=== PATIENT | female | born 1945 | race Two or more races ===

== ENCOUNTER → 2019-03-14 | Outpatient (CLI) | payer BC ==
[~2019-03-14] MED LIST: DIATRIZOATE MEGL/DIATRIZOA SOD 30 ML BTL PO ONE; IOPAMIDOL 370 MG/ML 200 ML INFUS..BTL INJ ONE; SODIUM CHLORIDE 0.9% 50ML 50 ML ONE
[2019-03-14 09:33] LABS: BLOOD UREA NITROGEN 12 mg/dL (7-26); BUN/CREATININE RATIO 17 (6-25); CREATININE, SERUM 0.71 mg/dL (0.57-1.11); EST GLOMERULAR FILTRATION RATE > 60 ML/MIN (60-)
--- NOTE | 2019-03-14 10:42 | Diagnostic Imaging Report ---
ADDENDUM #1 ADDENDUM: Upon further review, the pancreatic uncinate process hypodensity is suspicious for a mass. This measures up to 2.2 cm on coronal series 601, image 72. Therefore pancreatic protocol MRI is recommended for further evaluation. Signed by: Dr. Gm Jalloh MD on 03/14/2019 1:25 PM ORIGINAL REPORT EXAM: CT Abdomen with contrast INDICATION: Abdominal pain, elevated CA 19-9, query pancreatic mass. COMPARISON: None. TECHNIQUE: Abdomen was scanned utilizing a multidetector helical scanner from the lung base to the iliac crests after administration of IV contrast. Coronal and sagittal reformations were obtained. Pancreatic mass protocol was performed. Arterial, portal venous, and delayed images were obtained. IV CONTRAST: 100 cc of Isovue 370 ORAL CONTRAST: Water COMPLICATIONS: None RADIATION DOSE: Total DLP: 1134.7 mGy*cm Dose modulation, iterative reconstruction, and/or weight based adjustment of the mA/kV was utilized to reduce the radiation dose to as low as reasonably achievable. FINDINGS: LINES and TUBES: None. LOWER THORAX: Unremarkable HEPATOBILIARY: Diffuse mild hepatic steatosis. No evidence of focal lesion. No biliary ductal dilation. GALLBLADDER: No radio-opaque stones or sludge. No wall thickening. SPLEEN: No splenomegaly. PANCREAS: No evidence of discrete mass. There is mild hypoenhancement of the uncinate process, as seen on coronal series 601, image 72. No ductal dilatation. ADRENALS: No adrenal nodules KIDNEYS: Kidneys enhance symmetrically. No evidence of hydronephrosis, solid mass, or stone. GI TRACT: No evidence of wall thickening or distension. LYMPH NODES: No lymphadenopathy. VESSELS: Scattered atherosclerotic calcifications of the abdominal aorta. PERITONEUM / RETROPERITONEUM: No free air or fluid. BONES AND SOFT TISSUES: Unremarkable. CONCLUSION: Mild nonspecific hypoenhancement of the uncinate process without discrete pancreatic mass. In the setting of elevated cancer markers, pancreatic protocol MRI or a follow-up pancreatic protocol CT in 3 months may be considered. Diffuse mild hepatic steatosis. Signed by: Dr. Gm Jalloh MD on 03/14/2019 12:41 PM
== END ==
LOC: CT 07:55
PROVIDERS: ATTEND Surgery
DX: R10.9 Unspecified abdominal pain (principal); K86.9 Disease of pancreas, unspecified; K76.0 Fatty (change of) liver, not elsewhere classified
CPT/HCPCS: 36415; 74170; 82565; 84520; Q9967

== ENCOUNTER → 2019-03-16 | Outpatient (CLI) | payer BC ==
[~2019-03-16] MED LIST changes: -DIATRIZOATE MEGL/DIATRIZOA SOD 30 ML BTL PO ONE; +GADOBENATE DIMEGLUMINE 1 ML IV ONE; -IOPAMIDOL 370 MG/ML 200 ML INFUS..BTL INJ ONE; -SODIUM CHLORIDE 0.9% 50ML 50 ML ONE
--- NOTE | 2019-03-16 13:59 | Diagnostic Imaging Report ---
History: ^MILD HYPOENHANCEMENT OF UNCINATE; 2.[address] of the abdomen. Comparison: CT abdomen/pelvis 03/14/2019. Technique: Multiplanar, multisequence images of the abdomen were obtained before and after the administration of 14 cc of gadolinium. 3D volume rendered reformation images of the biliary tree were performed. Findings: The timing of the contrast bolus is suboptimal secondary to a tenuous IV. There is no arterial or early portal venous phase of enhancement. MRCP: The intra and extrahepatic biliary ducts, cystic duct, common bile duct appear normal. No focal biliary dilatation or stricture identified. Gallbladder: Mildly contracted but otherwise normal. No biliary or gallbladder filling defect identified to suggest calculi. Liver: Moderate steatosis. No mass. Spleen: Normal size and signal. No mass Pancreas: Normal T1 signal. Normal T2 signal. No evidence of mass. Pancreas duct: No evidence of ductal dilatation. Kidneys: No hydronephrosis. No mass Adrenal glands: No mass Lymph nodes: No enlarged abdominal or periaortic lymph nodes. Bowel: The stomach is normal. There is a tiny periampullary duodenal diverticulum. Remainder of the small bowel is normal in diameter with normal wall thickness. The visualized large bowel is normal in diameter with normal wall thickness. Peritoneum/Retroperitoneum: No free fluid or fluid collection. Pelvis: Visualized pelvic organs are unremarkable. Vasculature: Unremarkable. Lung bases: Clear. Bones: Normal marrow signal. No focal osseous lesions. IMPRESSION: 1. There is no evidence of mass or other abnormality in the pancreas to correlate with the findings on CT. 2. Moderate steatosis. 3. Normal gallbladder and biliary tree. 4. Tiny periampullary duodenal diverticulum. Thank you for your referral. Signed by: Dr. Jenifer French MD on 03/16/2019 1:55 PM
== END ==
LOC: MRI 11:37
PROVIDERS: ATTEND Surgery
DX: K76.0 Fatty (change of) liver, not elsewhere classified (principal)
CPT/HCPCS: 74183

== ENCOUNTER → 2019-08-29 | Outpatient (CLI) | payer BC, MEDICARE ==
--- NOTE | 2019-08-29 11:39 | Diagnostic Imaging Report ---
EXAMINATION: CHEST 2 VIEWS INDICATION: Wheezing COMPARISON: None FINDINGS: LINES/TUBES:None LUNGS:The lungs are well-inflated. No focal consolidation or pulmonary edema. PLEURA:No pleural effusion or pneumothorax. MEDIASTINUM:The cardiomediastinal silhouette appears normal in size and shape. Atherosclerotic calcifications of the thoracic aorta. BONES/SOFT TISSUES:No acute osseous injury. ABDOMEN:No free air under the diaphragm. IMPRESSION: No focal pneumonia or pulmonary edema. Signed by: Abdullahi Carrasco MD on 08/29/2019 11:36 AM
== END ==
LOC: RAD 10:58
PROVIDERS: ATTEND Internal Medicine Pulmonary Disease
DX: R06.2 Wheezing (principal)
CPT/HCPCS: 71046

== ENCOUNTER → 2019-09-06 | Outpatient (CLI) | payer BC | LOC: MAMMO 09:53 | PROVIDERS: ATTEND Internal Medicine | DX: Z12.31 Encounter for screening mammogram for malignant neoplasm of breast (principal) | CPT/HCPCS: 77067 ==

== ENCOUNTER → 2019-09-15 | Outpatient (CLI) | payer BC, MEDICARE ==
[~2019-09-15] MED LIST changes: -GADOBENATE DIMEGLUMINE 1 ML IV ONE; +LEVALBUTEROL HCL SOLN NEBU 0.63 MG/3 ML NEB ONE
== END ==
LOC: RESP 09:00
PROVIDERS: ATTEND Internal Medicine Pulmonary Disease
DX: R06.2 Wheezing (principal)
CPT/HCPCS: 94060; 94640; 94727; 94729

== ENCOUNTER → 2019-09-30 | Outpatient (CLI) | payer MEDICARE, BC ==
--- NOTE | 2019-10-01 11:46 | Pulmonary Function Test ---
DATE OF STUDY: REFERRING PHYSICIAN: Patient of Dr. Nix. FINDINGS: Restrictive spirometry. Forced vital capacity 1.75 L, 68% of predicted. FEV1 1.40 L, 73% of predicted. FEV1/FVC ratio 80%. [id number] of 80%, restrictive pattern. There is no significant improvement following inhalation of bronchodilators. Lung volumes are reduced moderately. Total lung capacity 3.31 L, 75% of predicted. Diffusion capacity is reduced 10.12, 53% of predicted. FINDINGS: Consistent with restrictive pulmonary disease, restriction may be secondary to morbid obesity, congestive heart failure. Parenchymal pulmonary disease, neuromuscular disease, pleural disease, chest wall disease, and diaphragmatic disease. Clinical correlation required. Malvin Villalobos MD DS/MODL /[id number]
== END ==
LOC: RESP 10:42
PROVIDERS: ATTEND Internal Medicine Pulmonary Disease
DX: R06.2 Wheezing (principal)
CPT/HCPCS: 94727

== ENCOUNTER → 2020-09-14 | Outpatient (CLI) | payer MEDICARE, BC | LOC: MAMMO 09:21 | PROVIDERS: ATTEND Family Medicine | DX: Z12.31 Encounter for screening mammogram for malignant neoplasm of breast (principal) | CPT/HCPCS: 77067 ==

== ENCOUNTER → 2022-12-17 | Outpatient (CLI) | payer MEDICARE, BC | LOC: DX 10:17 | PROVIDERS: ATTEND Family Medicine | DX: Z13.820 Encounter for screening for osteoporosis (principal) | CPT/HCPCS: 77080 ==

== ENCOUNTER → 2025-05-19 | Outpatient (REF) | payer MEDICARE, OTHER | LOC: MAMMO 08:20 | PROVIDERS: ATTEND Family Medicine | DX: Z12.31 Encounter for screening mammogram for malignant neoplasm of breast (principal) | CPT/HCPCS: 77067 ==